=== PATIENT | female | born 1995 | race American Indian/Alaskan Native ===

== ENCOUNTER 2017-03-17 23:15 | Emergency (ER) | payer SELFPAY | END 2017-03-18 02:30 | disposition left against medical advice (07) | LOC: ED 23:15 | DX: N89.8 Other specified noninflammatory disorders of vagina (principal); Z53.21 Procedure and treatment not carried out due to patient leaving prior to being seen by health care provider ==

== ENCOUNTER 2019-08-31 13:32 | Emergency (ER) | payer OTHER ==
[~2019-08-31 13:32] MED LIST: IBUPROFEN 600 MG TAB PO ONE
[2019-08-31 13:45] VITALS: BP 112/67
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
--- NOTE | 2019-08-31 15:28 | XRay Report ---
LUMBAR SPINE 3 VIEWS INDICATION: pain COMPARISON: None. FINDINGS: There is no fracture, subluxation, or other acute radiographic abnormality of the lumbar spine. Signer Name: Delano Adams MD Signed: 08/31/2019 3:23 PM Workstation Name: [id number]
[2019-08-31] MEDS ORDERED: IBUPROFEN 600 MG TAB PO ONE (16:13)
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
== END 2019-08-31 21:15 | disposition home or self-care (01) ==
LOC: ED 13:32
DX: S39.012A Strain of muscle, fascia and tendon of lower back, initial encounter (principal); V49.49XA Driver injured in collision with other motor vehicles in traffic accident, initial encounter; Y93.89 Activity, other specified; Y92.488 Other paved roadways as the place of occurrence of the external cause; Y99.8 Other external cause status
CPT/HCPCS: 72100; 99283